=== PATIENT | female | born 1945 | race Caucasian/White ===

== ENCOUNTER 2021-05-08 10:54 | Observation (INO) | payer MEDICARE, OTHER ==
--- NOTE | 2021-05-08 11:50 | EDM.PDOC ---
ED HPI GENERAL MEDICAL PROBLEM - General Chief Complaint: General Stated Complaint: confusion Time Seen by Provider: 05/08/21 11:05 Source of Information: Reports: Patient, Family, Usp Records History Limitations: Reports: No Limitations - History of Present Illness INITIAL COMMENTS - FREE TEXT/NARRATIVE: This patient is a 76 year old female that presents to the ER. Patient brought by daughter aneesh Santacruz RN at [facility] [facility] called and spoke to RN here. The report is the patient chronically has confusion that has been getting worse for a long while. But, yesterday patient was a little more confused, was "aggressive" not hitting, and did not eat dinner or breakfast this morning. She also would not take her medications this morning, which normally she takes with out issue. They deny any injuries, falls, fever, congestion, drainage, cough, abd pain, chest pain, urinary/bowel changes. Patient denies any pain. She is alert and oriented to self, place, and time. No unilateral weaknesses. GCS 15, Stroke Score 0. Onset Date: 05/07/21 Front/Back Body Image: 1 - yeast growth Improves with: Reports: None Worsens with: Reports: None Associated Symptoms: Reports: Confusion, Loss of Appetite. Denies: Chest Pain, Cough, cough w sputum, Diaphoresis, Fever/Chills, Headaches, Malaise, Nausea/Vomiting, Rash, Seizure, Shortness of Breath, Syncope, Weakness - Related Data Allergies Allergy/AdvReac Type Severity Reaction Status Date / Time Penicillins Allergy Unknown Other Verified 05/08/21 11:11 Home Meds: Home Meds Amitriptyline [Elavil] 25 mg PO DAILY 05/08/21 [History] Aspirin [Halfprin] 81 mg PO DAILY 05/08/21 [History] Carbidopa/Levodopa [Carbidopa-Levodopa 25-100] 1 tab PO QID 05/08/21 [History] Cholecalciferol (Vitamin D3) [Vitamin D3] 5,000 unit PO DAILY 05/08/21 [History] Levothyroxine 125 mcg PO DAILY 05/08/21 [History] Lutein/Minerals/Vit A,C & E [Ocuvite] 1 tab PO DAILY 05/08/21 [History] Metoprolol Tartrate 50 mg PO BID 05/08/21 [History] Nystatin [Nystatin Crm] 15 gm TOP BID 05/08/21 [History] Omeprazole 20 mg PO ACBREAKFAST 05/08/21 [History] Propylene Glycol/Peg 400 [Systane 0.3-0.4% Eye Drops] 1 drop OP QID 05/08/21 [History] Vitamin E 400 unit PO DAILY 05/08/21 [History] amLODIPine [Norvasc] 5 mg PO DAILY 05/08/21 [History] atorvaSTATin [Lipitor] 10 mg PO DAILY 05/08/21 [History] glipiZIDE [Glucotrol] 15 mg PO DAILY 05/08/21 [History] metFORMIN [Glucophage] 500 mg PO BID 05/08/21 [History] Past Medical History HEENT History: Reports: Cataract, Hard of Hearing, Impaired Vision Cardiovascular History: Reports: High Cholesterol, Hypertension Gastrointestinal History: Reports: GERD Neurological History: Reports: Alzheimers Disease, Parkinson's, Other (See Below) Endocrine/Metabolic History: Reports: Diabetes, Type II, Other (See Below) Other Endocrine/Metabolic History: inactive thyroid. - Past Surgical History HEENT Surgical History: Reports: Cataract Surgery Social & Family History - Tobacco Use Tobacco Use Status *Q: Never Tobacco User Second Hand Smoke Exposure: No - Caffeine Use Caffeine Use: Reports: None - Recreational Drug Use Recreational Drug Use: No ED ROS GENERAL - Review of Systems Review Of Systems: See Below Constitutional: Reports: No Symptoms HEENT: Reports: No Symptoms Respiratory: Reports: No Symptoms Cardiovascular: Reports: No Symptoms Endocrine: Reports: No Symptoms GI/Abdominal: Reports: No Symptoms : Reports: No Symptoms Musculoskeletal: Reports: No Symptoms Skin: Reports: No Symptoms Neurological: Reports: Confusion, Tremors (Parkinsons, unchanged from baseline). Denies: Dizziness, Headache, Numbness, Seizure, Syncope, Tingling, Trouble Speaking, Weakness, Change in Speech, Gait Disturbance Psychiatric: Reports: Agitation, Confusion Hematologic/Lymphatic: Reports: No Symptoms Immunologic: Reports: No Symptoms ED EXAM, GENERAL - Physical Exam Exam: See Below Exam Limited By: No Limitations General Appearance: Alert, WD/WN, No Apparent Distress Eye Exam: Bilateral Eye: Normal Inspection, PERRL Ears: Normal External Exam, Other (bilateral hearing aids present) Ear Exam: Bilateral Ear: Auricle Normal, Canal Normal, TM normal Nose: Normal Inspection, Normal Mucosa, No Blood Throat/Mouth: Normal Inspection, Normal Lips, Normal Teeth, Normal Gums, Normal Oropharynx, Normal Voice, No Airway Compromise Head: Atraumatic, Normocephalic Neck: Normal Inspection, Supple, Non-Tender, Full Range of Motion Respiratory/Chest: No Respiratory Distress, Lungs Clear, Normal Breath Sounds, No Accessory Muscle Use Cardiovascular: Normal Peripheral Pulses, Regular Rate, Rhythm, No Edema, No Gallop, No JVD, No Murmur, No Rub Peripheral Pulses: 2+: Radial (L), Radial (R), Posterior Tibial (L), Posterior Tibial (R), Dorsalis Pedis (L), Dorsalis Pedis (R) GI/Abdominal: Normal Bowel Sounds, Soft, Non-Tender, No Organomegaly, No Distention, No Mass, Pelvis Stable (Female) Exam: Deferred Rectal (Female) Exam: Deferred Back Exam: Normal Inspection, Full Range of Motion. No: CVA Tenderness (L), CVA Tenderness (R) Extremities: Normal Inspection, Normal Range of Motion, Non-Tender, No Pedal Edema, Normal Capillary Refill Neurological: Alert, Oriented, CN II-XII Intact, Normal Cognition, Normal Gait, No Motor/Sensory Deficits, Other (Stroke Score 0. GCS 15. I do not see tremors on my exam from her Parkinsons.) Psychiatric: Normal Affect, Normal Mood, Other (oriented, not agitated on my exam or in ER. ) Skin Exam: Warm, Dry, Intact, Normal Color, Rash (yeast rash under panus and groin folds) Lymphatic: No Adenopathy Course - Vital Signs Last Recorded V/S: Last Vital Signs Temp 96.7 F L 05/08/21 13:50 Pulse 71 05/08/21 13:50 Resp 18 05/08/21 13:50 BP 158/83 H 05/08/21 13:50 Pulse Ox 97 05/08/21 13:50 - Orders/Labs/Meds Orders: Active Orders 24 hr Category Date Time Status Chest 2V [CR] Stat Exams 05/08/21 11:25 Taken Head wo Cont [CT] Stat Exams 05/08/21 11:25 Taken CULTURE BLOOD [BC] Stat Lab 05/08/21 12:06 Received CULTURE BLOOD [BC] Stat Lab 05/08/21 12:06 Received CULTURE URINE [RM] Stat Lab 05/08/21 11:27 Received Blood Culture x2 Reflex Set [OM.PC] Stat Oth 05/08/21 11:25 Ordered EKG 12 Lead [EK] Stat Ther 05/08/21 11:25 Ordered Medication Orders Enoxaparin Sodium (Enoxaparin 40 Mg/0.4 Ml Syringe) 40 mg SUBCUT Q24H ALEJANDRA Fluconazole (Fluconazole 100 Mg Tab) 150 mg PO DAILY ALEJANDRA Last Admin: 05/08/21 15:31 Dose: 150 mg Documented by: KAYLAN Levofloxacin (Levofloxacin 500 Mg Tab) 500 mg PO Q24H ALEJANDRA Last Admin: 05/08/21 15:31 Dose: 500 mg Documented by: KAYLAN Ondansetron HCl (Ondansetron 4 Mg/2 Ml Sdv) 4 mg IV Q6H PRN PRN Reason: Nausea/Vomiting Labs: Laboratory Tests 05/08/21 05/08/21 05/08/21 Range/Units 11:27 12:06 12:06 WBC 10.1 (4.0-11.0) 10^3/uL RBC 4.95 (4.00-5.50) x10^6/uL Hgb 14.2 (12.0-16.0) g/dL Hct 42.1 (37.0-47.0) % MCV 85.1 (83.0-97.0) fL MCH 28.7 (27.0-32.0) pg MCHC 33.7 (32.0-36.0) g/dL RDW Coeff of Juan Manuel 13.0 (11.0-15.0) % Plt Count 278 (150-400) 10^3/uL Immature Gran % (Auto) 0.3 (0.0-4.9) % Neut % (Auto) 75.9 H (41-71) % Lymph % (Auto) 17.0 L (24-44) % [place] % (Auto) 6.1 (0-10) % Eos % (Auto) 0.3 (0-6) % Baso % (Auto) 0.4 (0-1) % Neut # (Auto) 7.66 (1.80-8.00) x10^3/uL Lymph # (Auto) 1.71 (0.60-5.00) 10^3/uL [place] # (Auto) 0.61 (0.00-1.50) 10^3/uL Eos # (Auto) 0.03 (0.00-1.50) 10^3/uL Baso # (Auto) 0.04 (0.00-0.50) 10^3/uL Immature Gran # (Auto) 0.03 (0.00-0.49) 10^3/uL PT (9.7-12.3) SEC INR (0.92-1.18) Sodium 143 (136-145) mEq/L Potassium 4.3 (3.5-5.0) mEq/L Chloride 103 (98-106) mEq/L Carbon Dioxide 31 (21-32) mmol/L BUN 20 H (7-18) mg/dL Creatinine 0.8 (0.6-1.0) mg/dL Est Cr Clr Drug Dosing 47.94 mL/min Estimated GFR (MDRD) > 60 (>=60) mL/min Glucose 122 H D (75-99) mg/dL Lactic Acid (0.4-2.0) mmol/L Calcium 9.2 (8.4-10.1) mg/dL Total Bilirubin 0.6 (0.0-1.0) mg/dL AST 14 L (15-37) U/L ALT 8 L (12-78) U/L Alkaline Phosphatase 68 (46-116) U/L Lactate Dehydrogenase 183 (100-190) U/L Troponin I < 0.017 (0.00-0.06) ng/mL Total Protein 7.7 (6.4-8.2) g/dL Albumin 4.0 (3.4-5.0) g/dL Urine Color Yellow (YELLOW) Urine Appearance Cloudy (CLEAR) Urine pH 5.0 (4.5-8.0) Ur Specific [place] >= 1.030 H (1.003-1.020) Urine Protein Trace H (NEGATIVE) mg/dL Urine Glucose (UA) Negative (NEGATIVE) mg/dL Urine Ketones Negative (NEGATIVE) mg/dL Urine Occult Blood Negative (NEGATIVE) Urine Nitrite Positive H (NEGATIVE) Urine Bilirubin Negative (NEGATIVE) Urine Urobilinogen 0.2 (0.2-1.0) EU/dL Ur Leukocyte Esterase Negative (NEGATIVE) Urine RBC 0-5 (0-5) /HPF Urine WBC 5-10 H (0-5) /HPF Ur Squamous Epith Cells Moderate H (NOT SEEN) /HPF Urine Bacteria Moderate H (NOT SEEN) /HPF Urine Mucus Many H (NOT SEEN) /HPF Urinalysis Comment 05/08/21 05/08/21 Range/Units 12:06 12:06 WBC (4.0-11.0) 10^3/uL RBC (4.00-5.50) x10^6/uL Hgb (12.0-16.0) g/dL Hct (37.0-47.0) % MCV (83.0-97.0) fL MCH (27.0-32.0) pg MCHC (32.0-36.0) g/dL RDW Coeff of Juan Manuel (11.0-15.0) % Plt Count (150-400) 10^3/uL Immature Gran % (Auto) (0.0-4.9) % Neut % (Auto) (41-71) % Lymph % (Auto) (24-44) % [place] % (Auto) (0-10) % Eos % (Auto) (0-6) % Baso % (Auto) (0-1) % Neut # (Auto) (1.80-8.00) x10^3/uL Lymph # (Auto) (0.60-5.00) 10^3/uL [place] # (Auto) (0.00-1.50) 10^3/uL Eos # (Auto) (0.00-1.50) 10^3/uL Baso # (Auto) (0.00-0.50) 10^3/uL Immature Gran # (Auto) (0.00-0.49) 10^3/uL PT 10.8 (9.7-12.3) SEC INR 0.99 (0.92-1.18) Sodium (136-145) mEq/L Potassium (3.5-5.0) mEq/L Chloride (98-106) mEq/L Carbon Dioxide (21-32) mmol/L BUN (7-18) mg/dL Creatinine (0.6-1.0) mg/dL Est Cr Clr Drug Dosing mL/min Estimated GFR (MDRD) (>=60) mL/min Glucose (75-99) mg/dL Lactic Acid 1.8 (0.4-2.0) mmol/L Calcium (8.4-10.1) mg/dL Total Bilirubin (0.0-1.0) mg/dL AST (15-37) U/L ALT (12-78) U/L Alkaline Phosphatase (46-116) U/L Lactate Dehydrogenase (100-190) U/L Troponin I (0.00-0.06) ng/mL Total Protein (6.4-8.2) g/dL Albumin (3.4-5.0) g/dL Urine Color (YELLOW) Urine Appearance (CLEAR) Urine pH (4.5-8.0) Ur Specific [place] (1.003-1.020) Urine Protein (NEGATIVE) mg/dL Urine Glucose (UA) (NEGATIVE) mg/dL Urine Ketones (NEGATIVE) mg/dL Urine Occult Blood (NEGATIVE) Urine Nitrite (NEGATIVE) Urine Bilirubin (NEGATIVE) Urine Urobilinogen (0.2-1.0) EU/dL Ur Leukocyte Esterase (NEGATIVE) Urine RBC (0-5) /HPF Urine WBC (0-5) /HPF Ur Squamous Epith Cells (NOT SEEN) /HPF Urine Bacteria (NOT SEEN) /HPF Urine Mucus (NOT SEEN) /HPF Urinalysis Comment Meds: Medications Generic Name Dose Route Start Last Admin Trade Name Freq PRN Reason Stop Dose Admin Enoxaparin Sodium 40 mg 05/08/21 20:00 Enoxaparin 40 Mg/0.4 Ml Syringe SUBCUT Q24H ALEJANDRA Fluconazole 150 mg 05/08/21 15:10 05/08/21 15:31 Fluconazole 100 Mg Tab PO 150 mg DAILY ALEJANDRA Administration Levofloxacin 500 mg 05/08/21 15:30 05/08/21 15:31 Levofloxacin 500 Mg Tab PO 500 mg Q24H ALEJANDRA Administration Ondansetron HCl 4 mg 05/08/21 15:10 Ondansetron 4 Mg/2 Ml Sdv IV Q6H PRN Nausea/Vomiting - Re-Assessments/Exams Free Text/Narrative Re-Assessment/Exam: 05/08/21 13:46 Due to patient being in assisted living and the daughter reports she can not stay with her, I will admit the patient for UTI with reported confusion. Departure - Departure Time of Disposition: 13:46 Disposition: Home, Self-Care 01 Condition: Fair Clinical Impression: UTI, Urinary tract infectious disease, Candidiasis - Discharge Information *PRESCRIPTION DRUG MONITORING PROGRAM REVIEWED*: Not Applicable *COPY OF PRESCRIPTION DRUG MONITORING REPORT IN PATIENT YASMANI: Not Applicable Sepsis Event Note (ED) - Evaluation Sepsis Screening Result: No Definite Risk - Focused Exam Vital Signs: Vital Signs Temp Pulse Resp BP Pulse Ox 05/08/21 10:56 97.4 F 75 20 183/79 H 96 - My Orders Last 24 Hours: My Active Orders 05/08/21 11:25 Chest 2V [CR] Stat Head wo Cont [CT] Stat Blood Culture x2 Reflex Set [OM.PC] Stat EKG 12 Lead [EK] Stat 05/08/21 11:27 CULTURE URINE [RM] Stat 05/08/21 12:06 CULTURE BLOOD [BC] Stat CULTURE BLOOD [BC] Stat - Assessment/Plan Last 24 Hours: My Active Orders 05/08/21 11:25 Chest 2V [CR] Stat Head wo Cont [CT] Stat Blood Culture x2 Reflex Set [OM.PC] Stat EKG 12 Lead [EK] Stat 05/08/21 11:27 CULTURE URINE [RM] Stat 05/08/21 12:06 CULTURE BLOOD [BC] Stat CULTURE BLOOD [BC] Stat Plan: PLEASE SEE RN NOTE FOR PFSH PLEASE USE ER H&P ADMIT H&P
[2021-05-08 12:35] LABS: CHLORIDE,CL 103 mEq/L (98-106); SODIUM,NA 143 mEq/L (136-145)
[2021-05-08] MEDS ORDERED: Ondansetron 4 MG/2 ML SDV IV PRN (15:10)
[2021-05-08] MEDS ORDERED: Levofloxacin 500 MG Tab PO SCH (15:30)
[2021-05-08] MEDS: Fluconazole 100 MG Tab PO SCH (15:31)
[2021-05-08] MEDS ORDERED: Enoxaparin 40 MG/0.4 ML Syringe SUBCUT SCH (20:00)
[2021-05-09 07:39] LABS: CHLORIDE,CL 103 mEq/L (98-106); SODIUM,NA 141 mEq/L (136-145)
[2021-05-09] MEDS ORDERED: Acetaminophen 325 MG Tab PO PRN (07:46)
[2021-05-09] MEDS: Fluconazole 100 MG Tab PO SCH (07:57)
--- NOTE | 2021-05-09 10:04 | PCM.DCSUM1 ---
Discharge Summary - Hospital Course HPI Initial Comments: 05/09/21 0940am This patient was admitted yesterday for UTI and confusion. This morning the patient reports that she has no pain other than her chronic knee pain she has everyday. Patient reports that she feels fine. She reports that she feels normal. She denies arteaga, dizziness, n, v, d, f, dysuria, cp, back pain, abd pain. The patient is fully alert and oriented. Since her admit yesterday she has not had any episodes of confusion per RN. The patient was able to get up and go to the bathroom with little to no assistance. Patient labs are unremarkable. Will discharge back to assisted living. Will continue her abx and diflucan for rash. - Discharge Data Discharge Date: 05/09/21 Discharge Disposition: Home, Self-Care 01 Condition: Good - Referral to Home Health Primary Care Physician: PCP None - Patient Instructions Diet: Usual Diet as Tolerated Activity: As Tolerated Driving: Do Not Drive Showering/Bathing: May Shower Notify Provider of: Fever, Increased Pain, Nausea and/or Vomiting Other/Special Instructions: Followup with your primary care provider. Return to the ER for worsening of condition or any emergent concerns. Increase fluids. Levaquin 500mg 1 pill once a day for 5 more days #5 no refill. Diflucan 150mg 1 pill once a day for 1 more day #1 no refill - Discharge Plan *PRESCRIPTION DRUG MONITORING PROGRAM REVIEWED*: Not Applicable *COPY OF PRESCRIPTION DRUG MONITORING REPORT IN PATIENT YASMANI: Not Applicable Prescriptions/Med Rec: Fluconazole [Diflucan] 150 mg PO DAILY #1 tablet levoFLOXacin [Levaquin] 500 mg PO Q24H #5 tablet Home Medications: Home Meds Amitriptyline [Elavil] 25 mg PO DAILY 05/08/21 [History] Aspirin [Halfprin] 81 mg PO DAILY 05/08/21 [History] Carbidopa/Levodopa [Carbidopa-Levodopa 25-100] 1 tab PO QID 05/08/21 [History] Cholecalciferol (Vitamin D3) [Vitamin D3] 5,000 unit PO DAILY 05/08/21 [History] Levothyroxine 125 mcg PO DAILY 05/08/21 [History] Lutein/Minerals/Vit A,C & E [Ocuvite] 1 tab PO DAILY 05/08/21 [History] Metoprolol Tartrate 50 mg PO BID 05/08/21 [History] Nystatin [Nystatin Crm] 15 gm TOP BID 05/08/21 [History] Omeprazole 20 mg PO ACBREAKFAST 05/08/21 [History] Propylene Glycol/Peg 400 [Systane 0.3-0.4% Eye Drops] 1 drop OP QID 05/08/21 [History] Vitamin E 400 unit PO DAILY 05/08/21 [History] amLODIPine [Norvasc] 5 mg PO DAILY 05/08/21 [History] atorvaSTATin [Lipitor] 10 mg PO DAILY 05/08/21 [History] glipiZIDE [Glucotrol] 15 mg PO DAILY 05/08/21 [History] metFORMIN [Glucophage] 500 mg PO BID 05/08/21 [History] Fluconazole [Diflucan] 150 mg PO DAILY #1 tablet 05/09/21 [Rx] levoFLOXacin [Levaquin] 500 mg PO Q24H #5 tablet 05/09/21 [Rx] Oxygen Therapy Mode: Room Air Patient Handouts: Skin Yeast Infection, Urinary Tract Infection, Adult, [id number] Forms: ED Department Discharge Referrals: PCP,None [Primary Care Provider] - - Discharge Summary/Plan Comment DC Time >30 min.: No - General Info Date of Service: 05/09/21 Functional Status: Reports: Pain Controlled, Tolerating Diet, Ambulating, Urinating - Review of Systems General: Reports: No Symptoms HEENT: Reports: No Symptoms Pulmonary: Reports: No Symptoms Cardiovascular: Reports: No Symptoms Gastrointestinal: Reports: No Symptoms Genitourinary: Reports: No Symptoms Musculoskeletal: Reports: Joint Pain (chronic bilateral knee pain) Skin: Reports: No Symptoms Neurological: Reports: No Symptoms Psychiatric: Reports: No Symptoms - Patient Data Vitals - Most Recent: Last Vital Signs Temp 97.7 F 05/09/21 08:00 Pulse 79 05/09/21 08:00 Resp 18 05/09/21 08:00 BP 153/79 H 05/09/21 08:00 Pulse Ox 97 05/09/21 08:00 Weight - Most Recent: 200 lb Lab Results - Last 24 hrs: Laboratory Results - last 24 hr 05/08/21 05/08/21 05/08/21 Range/Units 11:27 12:06 12:06 WBC 10.1 (4.0-11.0) 10^3/uL RBC 4.95 (4.00-5.50) x10^6/uL Hgb 14.2 (12.0-16.0) g/dL Hct 42.1 (37.0-47.0) % MCV 85.1 (83.0-97.0) fL MCH 28.7 (27.0-32.0) pg MCHC 33.7 (32.0-36.0) g/dL RDW Coeff of Juan Manuel 13.0 (11.0-15.0) % Plt Count 278 (150-400) 10^3/uL Immature Gran % (Auto) 0.3 (0.0-4.9) % Neut % (Auto) 75.9 H (41-71) % Lymph % (Auto) 17.0 L (24-44) % [place] % (Auto) 6.1 (0-10) % Eos % (Auto) 0.3 (0-6) % Baso % (Auto) 0.4 (0-1) % Neut # (Auto) 7.66 (1.80-8.00) x10^3/uL Lymph # (Auto) 1.71 (0.60-5.00) 10^3/uL [place] # (Auto) 0.61 (0.00-1.50) 10^3/uL Eos # (Auto) 0.03 (0.00-1.50) 10^3/uL Baso # (Auto) 0.04 (0.00-0.50) 10^3/uL Immature Gran # (Auto) 0.03 (0.00-0.49) 10^3/uL PT (9.7-12.3) SEC INR (0.92-1.18) Sodium 143 (136-145) mEq/L Potassium 4.3 (3.5-5.0) mEq/L Chloride 103 (98-106) mEq/L Carbon Dioxide 31 (21-32) mmol/L BUN 20 H (7-18) mg/dL Creatinine 0.8 (0.6-1.0) mg/dL Est Cr Clr Drug Dosing 47.94 mL/min Estimated GFR (MDRD) > 60 (>=60) mL/min Glucose 122 H D (75-99) mg/dL Lactic Acid (0.4-2.0) mmol/L Calcium 9.2 (8.4-10.1) mg/dL Total Bilirubin 0.6 (0.0-1.0) mg/dL AST 14 L (15-37) U/L ALT 8 L (12-78) U/L Alkaline Phosphatase 68 (46-116) U/L Lactate Dehydrogenase 183 (100-190) U/L Troponin I < 0.017 (0.00-0.06) ng/mL Total Protein 7.7 (6.4-8.2) g/dL Albumin 4.0 (3.4-5.0) g/dL Urine Color Yellow (YELLOW) Urine Appearance Cloudy (CLEAR) Urine pH 5.0 (4.5-8.0) Ur Specific [place] >= 1.030 H (1.003-1.020) Urine Protein Trace H (NEGATIVE) mg/dL Urine Glucose (UA) Negative (NEGATIVE) mg/dL Urine Ketones Negative (NEGATIVE) mg/dL Urine Occult Blood Negative (NEGATIVE) Urine Nitrite Positive H (NEGATIVE) Urine Bilirubin Negative (NEGATIVE) Urine Urobilinogen 0.2 (0.2-1.0) EU/dL Ur Leukocyte Esterase Negative (NEGATIVE) Urine RBC 0-5 (0-5) /HPF Urine WBC 5-10 H (0-5) /HPF Ur Squamous Epith Cells Moderate H (NOT SEEN) /HPF Urine Bacteria Moderate H (NOT SEEN) /HPF Urine Mucus Many H (NOT SEEN) /HPF Urinalysis Comment 05/08/21 05/08/21 05/09/21 Range/Units 12:06 12:06 05:00 WBC 8.2 (4.0-11.0) 10^3/uL RBC 4.68 (4.00-5.50) x10^6/uL Hgb 13.7 (12.0-16.0) g/dL Hct 40.0 (37.0-47.0) % MCV 85.5 (83.0-97.0) fL MCH 29.3 (27.0-32.0) pg MCHC 34.3 (32.0-36.0) g/dL RDW Coeff of Juan Manuel 12.8 (11.0-15.0) % Plt Count 258 (150-400) 10^3/uL Immature Gran % (Auto) 0.2 (0.0-4.9) % Neut % (Auto) 66.1 (41-71) % Lymph % (Auto) 26.1 (24-44) % [place] % (Auto) 6.5 (0-10) % Eos % (Auto) 0.7 (0-6) % Baso % (Auto) 0.4 (0-1) % Neut # (Auto) 5.40 (1.80-8.00) x10^3/uL Lymph # (Auto) 2.13 (0.60-5.00) 10^3/uL [place] # (Auto) 0.53 (0.00-1.50) 10^3/uL Eos # (Auto) 0.06 (0.00-1.50) 10^3/uL Baso # (Auto) 0.03 (0.00-0.50) 10^3/uL Immature Gran # (Auto) 0.02 (0.00-0.49) 10^3/uL PT 10.8 (9.7-12.3) SEC INR 0.99 (0.92-1.18) Sodium (136-145) mEq/L Potassium (3.5-5.0) mEq/L Chloride (98-106) mEq/L Carbon Dioxide (21-32) mmol/L BUN (7-18) mg/dL Creatinine (0.6-1.0) mg/dL Est Cr Clr Drug Dosing mL/min Estimated GFR (MDRD) (>=60) mL/min Glucose (75-99) mg/dL Lactic Acid 1.8 (0.4-2.0) mmol/L Calcium (8.4-10.1) mg/dL Total Bilirubin (0.0-1.0) mg/dL AST (15-37) U/L ALT (12-78) U/L Alkaline Phosphatase (46-116) U/L Lactate Dehydrogenase (100-190) U/L Troponin I (0.00-0.06) ng/mL Total Protein (6.4-8.2) g/dL Albumin (3.4-5.0) g/dL Urine Color (YELLOW) Urine Appearance (CLEAR) Urine pH (4.5-8.0) Ur Specific [place] (1.003-1.020) Urine Protein (NEGATIVE) mg/dL Urine Glucose (UA) (NEGATIVE) mg/dL Urine Ketones (NEGATIVE) mg/dL Urine Occult Blood (NEGATIVE) Urine Nitrite (NEGATIVE) Urine Bilirubin (NEGATIVE) Urine Urobilinogen (0.2-1.0) EU/dL Ur Leukocyte Esterase (NEGATIVE) Urine RBC (0-5) /HPF Urine WBC (0-5) /HPF Ur Squamous Epith Cells (NOT SEEN) /HPF Urine Bacteria (NOT SEEN) /HPF Urine Mucus (NOT SEEN) /HPF Urinalysis Comment 05/09/21 Range/Units 05:00 WBC (4.0-11.0) 10^3/uL RBC (4.00-5.50) x10^6/uL Hgb (12.0-16.0) g/dL Hct (37.0-47.0) % MCV (83.0-97.0) fL MCH (27.0-32.0) pg MCHC (32.0-36.0) g/dL RDW Coeff of [place] Manuel (11.0-15.0) % Plt Count (150-400) 10^3/uL Immature Gran % (Auto) (0.0-4.9) % Neut % (Auto) (41-71) % Lymph % (Auto) (24-44) % [place] % (Auto) (0-10) % Eos % (Auto) (0-6) % Baso % (Auto) (0-1) % Neut # (Auto) (1.80-8.00) x10^3/uL Lymph # (Auto) (0.60-5.00) 10^3/uL [place] # (Auto) (0.00-1.50) 10^3/uL Eos # (Auto) (0.00-1.50) 10^3/uL Baso # (Auto) (0.00-0.50) 10^3/uL Immature Gran # (Auto) (0.00-0.49) 10^3/uL PT (9.7-12.3) SEC INR (0.92-1.18) Sodium 141 (136-145) mEq/L Potassium 3.7 (3.5-5.0) mEq/L Chloride 103 (98-106) mEq/L Carbon Dioxide 29 (21-32) mmol/L BUN 15 (7-18) mg/dL Creatinine 0.7 (0.6-1.0) mg/dL Est Cr Clr Drug Dosing 54.79 mL/min Estimated GFR (MDRD) > 60 (>=60) mL/min Glucose 128 H (75-99) mg/dL Lactic Acid (0.4-2.0) mmol/L Calcium 8.7 (8.4-10.1) mg/dL Total Bilirubin (0.0-1.0) mg/dL AST (15-37) U/L ALT (12-78) U/L Alkaline Phosphatase (46-116) U/L Lactate Dehydrogenase (100-190) U/L Troponin I (0.00-0.06) ng/mL Total Protein (6.4-8.2) g/dL Albumin (3.4-5.0) g/dL Urine Color (YELLOW) Urine Appearance (CLEAR) Urine pH (4.5-8.0) Ur Specific [place] (1.003-1.020) Urine Protein (NEGATIVE) mg/dL Urine Glucose (UA) (NEGATIVE) mg/dL Urine Ketones (NEGATIVE) mg/dL Urine Occult Blood (NEGATIVE) Urine Nitrite (NEGATIVE) Urine Bilirubin (NEGATIVE) Urine Urobilinogen (0.2-1.0) EU/dL Ur Leukocyte Esterase (NEGATIVE) Urine RBC (0-5) /HPF Urine WBC (0-5) /HPF Ur Squamous Epith Cells (NOT SEEN) /HPF Urine Bacteria (NOT SEEN) /HPF Urine Mucus (NOT SEEN) /HPF Urinalysis Comment APRIL Results - Last 24 hrs: Microbiology 05/08/21 11:27 Urine Culture - Preliminary Urine, Voided Gram Negative Rods Med Orders - Current: Current Medications Acetaminophen (Acetaminophen 325 Mg Tab) 650 mg PO Q4H PRN PRN Reason: Pain Last Admin: 05/09/21 07:58 Dose: 650 mg Documented by: Enoxaparin Sodium (Enoxaparin 40 Mg/0.4 Ml Syringe) 40 mg SUBCUT Q24H [facility] Last Admin: 05/08/21 19:13 Dose: 40 mg Documented by: Fluconazole (Fluconazole 100 Mg Tab) 150 mg PO DAILY [facility] Last Admin: 05/09/21 07:57 Dose: 150 mg Documented by: Levofloxacin (Levofloxacin 500 Mg Tab) 500 mg PO Q24H [facility] Last Admin: 05/08/21 15:31 Dose: 500 mg Documented by: Ondansetron HCl (Ondansetron 4 Mg/2 Ml Sdv) 4 mg IV Q6H PRN PRN Reason: Nausea/Vomiting - Exam General: Reports: Alert, Oriented, Cooperative, No Acute Distress Lungs: Reports: Clear to Auscultation, Normal Respiratory Effort Cardiovascular: Reports: Regular Rate, Regular Rhythm GI/Abdominal Exam: Soft, Non-Tender Back Exam: Reports: Normal Inspection, Full Range of Motion, CVA Tenderness (R) Extremities: Normal Inspection, Normal Range of Motion, Non-Tender, No Pedal Edema, Normal Capillary Refill Skin: Reports: Warm, Dry, Intact, Rash (under panus and groin folds yeast. ) Neurological: Reports: No New Focal Deficit, Normal Gait, Normal Speech Psy/Mental Status: Reports: Alert, Normal Affect, Normal Mood
[2021-05-09] MEDS ORDERED: Levofloxacin 500 MG Tab PO SCH (11:00)
== END 2021-05-09 11:23 | disposition home or self-care (01) ==
LOC: CC.ED 10:54 → UNDOADMOB 13:50 → CC.MS 13:50 → UNDODISOB 05-09 11:23
PROVIDERS: ADMIT Nurse Practitioner; ATTEND Family Medicine
DX: B37.49 Other urogenital candidiasis (principal); R41.0 Disorientation, unspecified; M25.569 Pain in unspecified knee; G89.29 Other chronic pain; E78.00 Pure hypercholesterolemia, unspecified; I10 Essential (primary) hypertension; E11.9 Type 2 diabetes mellitus without complications; G30.9 Alzheimer's disease, unspecified; F02.80 Dementia in other diseases classified elsewhere, unspecified severity, without behavioral disturbance, psychotic disturbance, mood disturbance, and anxiety; G20 Parkinson's disease; E03.9 Hypothyroidism, unspecified; E66.9 Obesity, unspecified; Z68.35 Body mass index [BMI] 35.0-35.9, adult; Z88.0 Allergy status to penicillin; Z79.82 Long term (current) use of aspirin; Z79.890 Hormone replacement therapy; Z79.84 Long term (current) use of oral hypoglycemic drugs; Z79.899 Other long term (current) drug therapy
CPT/HCPCS: 36415; 70450; 71046; 80048; 80053; 81001; 83605; 83615; 84484; 85025; 85610; 87040; 87086; 87088; 87186; 93005; 93010; 96372; 99217; 99220; 99285-25; A9270-GY; G0378; J1650

== ENCOUNTER 2021-06-26 10:10 | Emergency (ER) | payer MEDICARE, OTHER ==
[2021-06-26 10:51] LABS: CHLORIDE,CL 104 mEq/L (98-106); SODIUM,NA 142 mEq/L (136-145)
--- NOTE | 2021-06-26 11:24 | EDM.PDOC ---
ED HPI GENERAL MEDICAL PROBLEM - General Chief Complaint: General Stated Complaint: Fall Time Seen by Provider: 06/26/21 10:20 Source of Information: Reports: Snf Records History Limitations: Reports: Altered Mental Status - History of Present Illness INITIAL COMMENTS - FREE TEXT/NARRATIVE: Radha is a 76 year old female who presents from [facility] with concerns of pain af ter a fall. Staff there reports she fell several hours ago and are now noting bruising to her left shoulder and left hip. States she was uncomfortable when palpating these areas. Patient has dementia, unable to report clearly her complaints. Per [facility] staff, they are waiting on a psych consult from Dr. Toribio. Also had a urine collected 2 days ago, of which I am unsure of the reasoning for. Did show concerns so a culture was done but did not want to start any meds until culture report and sensitivities back. Rates pain in left hip an 8 with movement, rates 9 at rest. Onset: Gradual Duration: Hour(s): Location: Reports: Other (shoulder and hip pain and bruising) Improves with: Reports: Rest Worsens with: Reports: Movement Context: Reports: Trauma Associated Symptoms: Reports: Confusion (chronic confusion). Denies: Cough, Fever/Chills, Shortness of Breath Left Hip Pain Score (Numeric/FACES): 8 - Related Data Allergies Allergy/AdvReac Type Severity Reaction Status Date / Time Penicillins Allergy Unknown Other Verified 06/26/21 10:27 Home Meds: Home Meds Amitriptyline [Elavil] 25 mg PO DAILY 05/08/21 [History] Aspirin [Halfprin] 81 mg PO DAILY 05/08/21 [History] Carbidopa/Levodopa [Carbidopa-Levodopa 25-100] 1 tab PO QID 05/08/21 [History] Cholecalciferol (Vitamin D3) [Vitamin D3] 5,000 unit PO DAILY 05/08/21 [History] Levothyroxine 125 mcg PO DAILY 05/08/21 [History] Lutein/Minerals/Vit A,C & E [Ocuvite] 1 tab PO DAILY 05/08/21 [History] Metoprolol Tartrate 50 mg PO BID 05/08/21 [History] Nystatin [Nystatin Crm] 15 gm TOP BID 05/08/21 [History] Omeprazole 20 mg PO ACBREAKFAST 05/08/21 [History] Propylene Glycol/Peg 400 [Systane 0.3-0.4% Eye Drops] 1 drop OP QID 05/08/21 [History] Vitamin E 400 unit PO DAILY 05/08/21 [History] amLODIPine [Norvasc] 5 mg PO DAILY 05/08/21 [History] atorvaSTATin [Lipitor] 10 mg PO DAILY 05/08/21 [History] glipiZIDE [Glucotrol] 15 mg PO DAILY 05/08/21 [History] metFORMIN [Glucophage] 500 mg PO BID 05/08/21 [History] Fluconazole [Diflucan] 150 mg PO DAILY #1 tablet 05/09/21 [Rx] levoFLOXacin [Levaquin] 500 mg PO Q24H #5 tablet 05/09/21 [Rx] Past Medical History HEENT History: Reports: Cataract, Hard of Hearing, Impaired Vision Cardiovascular History: Reports: High Cholesterol, Hypertension Gastrointestinal History: Reports: GERD Neurological History: Reports: Alzheimers Disease, Parkinson's, Other (See Below) Endocrine/Metabolic History: Reports: Diabetes, Type II, Other (See Below) Other Endocrine/Metabolic History: inactive thyroid. - Past Surgical History HEENT Surgical History: Reports: Cataract Surgery Social & Family History - Tobacco Use Tobacco Use Status *Q: Never Tobacco User Second Hand Smoke Exposure: No - Caffeine Use Caffeine Use: Reports: None ED ROS GENERAL - Review of Systems Review Of Systems: Unable To Obtain Reason Not Obtained: patient denies any complaints, areas of pain different with ?s ED EXAM, GENERAL - Physical Exam Exam: See Below Exam Limited By: Altered Mental Status General Appearance: Alert, WD/WN, No Apparent Distress Ears: Normal External Exam, Normal TMs Nose: Normal Inspection, Normal Mucosa, No Blood Throat/Mouth: Normal Inspection, Normal Oropharynx Head: Normocephalic Neck: Normal Inspection, Supple, Non-Tender Respiratory/Chest: No Respiratory Distress, Lungs Clear, Normal Breath Sounds Cardiovascular: Regular Rate, Rhythm, Systolic Murmur GI/Abdominal: Normal Bowel Sounds, Soft, Non-Tender Extremities: Pedal Edema, Other (range of motion to left shoulder completed without any resistance from patient or complaints of pain. Does have bruising to posterior scapular/rib area and is tender with palpation. Left hip range of motion intact, no pain with this. Does have grimacing and pain when palpation pompa area of L leg.) Neurological: Alert, Oriented (person and aware in [place], does not answer other questions appropriately. When questioned in regards to pain, states left hip and then knee then right leg.) Skin Exam: Ecchymosis (Ecchymosis noted to left posterior scapular region and left buttock) Course - Vital Signs Last Recorded V/S: Last Vital Signs Temp 98.6 F 06/26/21 10:15 Pulse 82 06/26/21 10:15 Resp 20 06/26/21 10:15 BP 132/65 06/26/21 10:15 Pulse Ox 97 06/26/21 10:15 - Orders/Labs/Meds Orders: Active Orders 24 hr Category Date Time Status Hip Min 2V or 3V w Pelvis Lt [CR] Stat Exams 06/26/21 10:32 Taken Ribs 2V w Chest Lt [CR] Stat Exams 06/26/21 10:32 Taken Labs: Laboratory Tests 06/26/21 06/26/21 Range/Units 10:25 10:25 WBC 8.6 (4.0-11.0) 10^3/uL RBC 4.35 (4.00-5.50) x10^6/uL Hgb 12.7 (12.0-16.0) g/dL Hct 37.3 (37.0-47.0) % MCV 85.7 (83.0-97.0) fL MCH 29.2 (27.0-32.0) pg MCHC 34.0 (32.0-36.0) g/dL RDW Coeff of Juan Manuel 12.8 (11.0-15.0) % Plt Count 244 (150-400) 10^3/uL Immature Gran % (Auto) 0.2 (0.0-4.9) % Neut % (Auto) 68.5 (41-71) % Lymph % (Auto) 22.7 L (24-44) % Towns % (Auto) 7.5 (0-10) % Eos % (Auto) 0.6 (0-6) % Baso % (Auto) 0.5 (0-1) % Neut # (Auto) 5.89 (1.80-8.00) x10^3/uL Lymph # (Auto) 1.95 (0.60-5.00) 10^3/uL Towns # (Auto) 0.64 (0.00-1.50) 10^3/uL Eos # (Auto) 0.05 (0.00-1.50) 10^3/uL Baso # (Auto) 0.04 (0.00-0.50) 10^3/uL Immature Gran # (Auto) 0.02 (0.00-0.49) 10^3/uL Sodium 142 (136-145) mEq/L Potassium 3.5 (3.5-5.0) mEq/L Chloride 104 (98-106) mEq/L Carbon Dioxide 25 (21-32) mmol/L BUN 14 (7-18) mg/dL Creatinine 0.8 (0.6-1.0) mg/dL Est Cr Clr Drug Dosing TNP Estimated GFR (MDRD) > 60 (>=60) mL/min Glucose 176 H D (75-99) mg/dL Calcium 9.0 (8.4-10.1) mg/dL Total Bilirubin 0.6 (0.0-1.0) mg/dL AST 14 L (15-37) U/L ALT 13 (12-78) U/L Alkaline Phosphatase 64 (46-116) U/L C-Reactive Protein 3.3 H (0.2-0.8) mg/dL Total Protein 7.1 (6.4-8.2) g/dL Albumin 3.5 (3.4-5.0) g/dL - Re-Assessments/Exams Free Text/Narrative Re-Assessment/Exam: 06/26/21 Labs done are all unremarkable. Vitals are stable. Xrays are essentially negative, has good range of motion. Urine culture reviewed, does show klebsiella. Will start Levaquin. Pharmacy contacted to deliver meds to [facility]. Departure - Departure Time of Disposition: 11:21 Disposition: Home, Self-Care 01 Condition: Fair Clinical Impression: UTI (urinary tract infection), Contusion - Discharge Information *PRESCRIPTION DRUG MONITORING PROGRAM REVIEWED*: No *COPY OF PRESCRIPTION DRUG MONITORING REPORT IN PATIENT YASMANI: No Instructions: Urinary Tract Infection, Adult Forms: ED Department Discharge Additional Instructions: 1. Push fluids 2. Tylenol for discomfort 3. Start levaquin 500 mg daily for 7 days 4. Recheck urine in one week 5. Consult with Dr. Dunbar for ongoing concerns. Sepsis Event Note (ED) - Evaluation Sepsis Screening Result: No Definite Risk - Focused Exam Vital Signs: Vital Signs Temp Pulse Resp BP Pulse Ox 06/26/21 10:15 98.6 F 82 20 132/65 97 06/26/21 10:10 98.2 F 82 20 132/65 97 - My Orders Last 24 Hours: My Active Orders 06/26/21 10:32 Hip Min 2V or 3V w Pelvis Lt [CR] Stat Ribs 2V w Chest Lt [CR] Stat - Assessment/Plan Last 24 Hours: My Active Orders 06/26/21 10:32 Hip Min 2V or 3V w Pelvis Lt [CR] Stat Ribs 2V w Chest Lt [CR] Stat
== END 2021-06-26 11:55 | disposition home or self-care (01) ==
LOC: CC.ED 10:10
DX: S40.012A Contusion of left shoulder, initial encounter (principal); S30.0XXA Contusion of lower back and pelvis, initial encounter; N39.0 Urinary tract infection, site not specified; E78.00 Pure hypercholesterolemia, unspecified; I10 Essential (primary) hypertension; K21.9 Gastro-esophageal reflux disease without esophagitis; E11.9 Type 2 diabetes mellitus without complications; G30.9 Alzheimer's disease, unspecified; F02.80 Dementia in other diseases classified elsewhere, unspecified severity, without behavioral disturbance, psychotic disturbance, mood disturbance, and anxiety; Z88.0 Allergy status to penicillin; Z79.82 Long term (current) use of aspirin; Z79.84 Long term (current) use of oral hypoglycemic drugs; Z79.899 Other long term (current) drug therapy; W18.30XA Fall on same level, unspecified, initial encounter
CPT/HCPCS: 36415; 71101-LT; 80053; 85025; 86140; 99283-25; 99284